=== PATIENT | male | born 1980 | race Caucasian/White ===

== ENCOUNTER 2021-03-30 01:04 | Emergency (ER) | payer BC ==
[~2021-03-30] VITALS: Ht 193 cm; Wt 122.5 kg
[~2021-03-30 01:04] MED LIST: IBUPROFEN 800800 M1 PO
[2021-03-30] MEDS ORDERED: CELEXA 20 MG TA20 MG PO (01:19)
[2021-03-30] MEDS ORDERED: FLONASE 0.05%50 MCG NARES (02:22)
[2021-03-30 02:31] VITALS: BP 132/68
== END 2021-03-30 02:31 | disposition home or self-care (01) ==
LOC: M.ERS 01:04
DX: R51.9 Headache, unspecified (principal); Z20.822 Contact with and (suspected) exposure to COVID-19; Z98.890 Other specified postprocedural states